=== PATIENT | male | born 1990 ===

== ENCOUNTER 2022-07-26 12:59 | Day surgery (SDC) | payer BC, SELFPAY ==
--- NOTE | 2022-07-26 13:08 | US_ITS ---
[address] [address] Patient Name: TARAH BRODERICK MRN: [id number] date: 1990 Sex: M Assigned Patient Location: [place] Current Patient Location: [place] Accession/Order Number: [id number] Exam Date: 07/26/2022 13:07 Report Date: 07/26/2022 15:09 At the request of: JUAN AGGARWAL Procedure: US biopsy thyroid EXAMINATION: US biopsy thyroid HISTORY: Thyroid Nodule COMPARISON: No relevant comparison available. TECHNIQUE: After obtaining informed consent, an ultrasound-guided biopsy was performed in the usual sterile manner. FINDINGS: IMAGING: Ultrasound BIOPSY NEEDLE: 25-gauge, 2 inch SPECIMEN TYPE, #, LOCATION: 3 fine-needle aspirates, 2.1 cm right thyroid TR 3 nodule MEDICATION: 2 cc 1% buffered lidocaine COMPLICATIONS: None. LABORATORY: OTHER: Negative. IMPRESSION: Uneventful ultrasound guided biopsy. The patient was instructed to obtain follow up care and biopsy results from the referring physician. Electronically authenticated by: RADHA GRIFFIN Date: 07/26/2022 15:09
[2022-07-26 13:17] VITALS: BP 125/73; PULSE 71; O2SAT 95
[2022-07-26] MEDS: LIDOCAINE HCL 10 ML, SODIUM BICARBONATE 1 MEQ INJ (15:10)
== END 2022-07-26 14:42 | disposition home or self-care (01) ==
LOC: US 13:01
PROVIDERS: Radiology Diagnostic Radiology; PCP Otolaryngology; Visit Provider Otolaryngology
DX: E04.1 Nontoxic single thyroid nodule (principal)
CPT/HCPCS: 10005; 88173